=== PATIENT | female | born 2005 | race Caucasian/White ===

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

== ENCOUNTER 2025-02-17 09:26 | Outpatient (CLI) | payer OTHER, SELFPAY ==
--- NOTE | ~2025-02-17 | US_ITS ---
EXAMINATION: US thyroid DATE: 02/17/2025 10:01 INDICATION: Autoimmune thyroiditis TECHNIQUE: Multiple ultrasound images of the thyroid were obtained. COMPARISON: None. FINDINGS: The right thyroid lobe measures 4.8 x 1.8 x 1.6 cm. The left thyroid lobe measures 5.5 x 1.6 x 1.4 c m. Heterogeneous echogenicity with hypoechoic pseudo nodular pattern throughout both thyroid lobes. N o discrete thyroid nodules identified. There are a few prominent very hypoechoic lymph nodes with joel tral echogenic wanda at the midline inferior to the thyroid measuring 12 x 11 x 4 mm and along the lef t jugular chain measuring 1.7 x 0.9 x 0.8 cm, both which remain within normal limits. IMPRESSION: 1. Diffuse heterogeneous thyroid echogenicity with hypoechoic pseudo nodular pattern which can be see n with Sophy thyroiditis. No discrete thyroid nodules identified. 2. Couple mildly prominent but still normal-sized cervical lymph nodes which are likely reactive. Reviewed, dictated and finalized at location A. IMPRESSION: 1. Diffuse heterogeneous thyroid echogenicity with hypoechoic pseudo nodular pa ttern which can be seen with Sophy thyroiditis. No discrete thyroid nodules identified. 2. Couple mildly prominent but still normal-sized cervical lymph nodes which ar e likely reactive.
== END 2025-02-17 09:27 | disposition home or self-care (01) ==
DX: E06.3 Autoimmune thyroiditis (principal); E04.9 Nontoxic goiter, unspecified
CPT/HCPCS: 76536